=== PATIENT | female | born 1965 | race Hispanic/Latino ===

== ENCOUNTER 2020-04-27 14:36 | Inpatient (IN) | payer MEDICARE, OTHER ==
[~2020-04-27] VITALS: Ht 147.3 cm; Wt 40.8 kg
[2020-04-27 16:27] LABS: BASOPHILS % 0.7 % (0.0-1.0); EOSINOPHILS % 0.4 % (0.0-6.0); HEMATOCRIT 33.3 % (34.2-44.1); HEMOGLOBIN 10.8 g/dL (12.0-16.0); LYMPHOCYTES # (AUTO) 0.3 (1.0-3.2); LYMPHOCYTES % 11.2 % (18.0-39.1); MEAN CORPUSCULAR HEMOGLOBIN 32.2 pg (28-32); MEAN CORPUSCULAR HGB CONC 32.4 g/dL (31-35); MEAN CORPUSCULAR VOLUME 99.4 fL (81-99); MONOCYTES # (AUTO) 0.2 (0.2-0.8); MONOCYTES % 6.8 % (4.4-11.3); NEUTROPHILS # (AUTO) 2.2 (2.1-6.9); NEUTROPHILS % 80.5 % (38.7-80.0); PLATELET COUNT 164 x10e3/uL (140-360); RED BLOOD COUNT 3.35 x10e6/uL (3.6-5.1); RED CELL DISTRIBUTION WIDTH 16.1 % (11.7-14.4)
[2020-04-27 16:38] LABS: CLARITY,URINE CLOUDY (CLEAR); COLOR,URINE YELLOW (YELLOW); KETONES,URINE NEGATIVE (NEGATIVE); LEUKOCYTE ESTERASE ,URINE LARGE (NEGATIVE); NITRITE,URINE NEGATIVE (NEGATIVE); PROTEIN,URINE DIPSTICK >=300 (NEGATIVE); URINE UROBILINOGEN 0.2 mg/dL (0.2 - 1)
[2020-04-27] MEDS ORDERED: OMEPRAZOLE40 MG PO (16:41)
[2020-04-27] MEDS ORDERED: PREDNISONE5 MG PO (16:41)
[2020-04-27] MEDS ORDERED: CEPHALEXIN500 MG (16:41)
[2020-04-27] MEDS ORDERED: INSULIN AS100 UNIT/3 (16:41)
[2020-04-27] MEDS ORDERED: LANTUS 3ML100 UNITS/ SQ (16:41)
[2020-04-27] MEDS ORDERED: NYSTATIN15 GM TOP (16:41)
[2020-04-27] MEDS ORDERED: OMEGA-3 ACID ETH1 GM PO (16:41)
[2020-04-27] MEDS ORDERED: [UNRECOGNIZED DRUG - OTHER] (16:41)
[2020-04-27] MEDS ORDERED: ATORVASTATIN CA10 MG PO (16:41)
[2020-04-27] MEDS ORDERED: CHOLESTYRAMINE P4 GM (16:41)
[2020-04-27] MEDS ORDERED: SEVELAMER CARB800 MG PO (16:41)
[2020-04-27] MEDS ORDERED: NIFEDIPINE ER30 MG (16:41)
[2020-04-27 16:42] LABS: ALBUMIN 2.3 g/dL (3.5-5.0); ALBUMIN/GLOBULIN RATIO 0.7 (0.8-2.0); ANION GAP 12.7 mmol/L (8-16); CALCIUM 7.7 mg/dL (8.4-10.2); CREATININE, SERUM 1.14 mg/dL (0.57-1.11); POTASSIUM 3.7 mmol/L (3.5-5.1)
[2020-04-27 16:45] LABS: WBC,URINE (MAN) >50 /HPF (0-5)
[2020-04-27 16:46] LABS: AMORPHOUS SEDIMENT,URINE FEW (FEW); BACTERIA,URINE MODERATE /HPF; EPITHELIAL CELLS,URINE FEW /LPF; MUCUS,URINE MODERATE (RARE)
[2020-04-27 16:48] LABS: INR 0.88; PROTHROMBIN TIME 12.4 seconds (11.9-14.5)
[2020-04-27 16:49] LABS: CREATINE KINASE MB 2.9 ng/mL (0-5.0); PARTIAL THROMBOPLASTIN TIME 29.2 seconds (23.8-35.5)
[2020-04-27] MEDS ORDERED: MEROPENEM 1GM 100 ML IV STA (17:07)
[2020-04-27] MEDS ORDERED: ONDANSETRON HCL INJ 2MG/ML 2ML 2 MG/ML VIAL IV PRN (18:00)
[2020-04-27] MEDS ORDERED: SODIUM CHLORIDE FLUSH 10 ML SYR INJ PRN (18:00)
[2020-04-27] MEDS ORDERED: DEXTROSE 50% SYRINGE 50 ML IV PRN (18:00)
[2020-04-27 21:01] VITALS: BP 164/76
[2020-04-27 21:23] VITALS: BP_SYST 152; BP_SYST 164; BP_DIAS 76; BP_DIAS 99
[2020-04-27] MEDS: INSULIN REGULAR, HUMAN 100 UNIT/1 ML 3ML VIAL SQ SCH (21:41)
[2020-04-27] MEDS ORDERED: CYCLOSPORINE25 MG PO (21:55)
[2020-04-27] MEDS ORDERED: IMODIUM2 MG PO (22:11)
[2020-04-27] MEDS ORDERED: [UNRECOGNIZED DRUG - OTHER] PO (22:11)
[2020-04-27] MEDS ORDERED: TYLENOL EXTRA500 MG PO (22:11)
[2020-04-27] MEDS ORDERED: VITAMIN D250 MCG PO (22:11)
[2020-04-28] VITALS (7 sets, daily range): BP systolic 97–122; BP diastolic 41–51
[2020-04-28] MEDS: ACETAMINOPHEN 325 MG TAB PO PRN ×2 (01:02→18:21)
[2020-04-28 02:19] LABS: CREATINE KINASE MB 1.4 ng/mL (0-5.0)
[2020-04-28] MEDS ORDERED: ZOLPIDEM TARTRATE 5 MG TAB PO PRN (04:00)
[2020-04-28] MEDS ORDERED: DOCUSATE SODIUM 100 MG CAP PO PRN (04:00)
[2020-04-28] MEDS: SODIUM CHLORIDE 0.9% 1000ML 1,000 ML IV SCH (04:20)
[2020-04-28 06:16] LABS: BASOPHILS % 0.7 % (0.0-1.0); HEMATOCRIT 32.9 % (34.2-44.1); HEMOGLOBIN 10.5 g/dL (12.0-16.0); LYMPHOCYTES # (AUTO) 0.6 (1.0-3.2); LYMPHOCYTES % 21.4 % (18.0-39.1); MEAN CORPUSCULAR HEMOGLOBIN 32.2 pg (28-32); MEAN CORPUSCULAR HGB CONC 31.9 g/dL (31-35); MEAN CORPUSCULAR VOLUME 100.9 fL (81-99); MONOCYTES # (AUTO) 0.4 (0.2-0.8); MONOCYTES % 11.9 % (4.4-11.3); NEUTROPHILS # (AUTO) 1.9 (2.1-6.9); NEUTROPHILS % 65.3 % (38.7-80.0); PLATELET COUNT 122 x10e3/uL (140-360); RED BLOOD COUNT 3.26 x10e6/uL (3.6-5.1); RED CELL DISTRIBUTION WIDTH 16.5 % (11.7-14.4)
[2020-04-28 06:40] LABS: CHOL/HDL RATIO 1.8 (3.0-3.6)
[2020-04-28 06:46] LABS: CREATINE KINASE MB 1.2 ng/mL (0-5.0)
[2020-04-28 07:02] LABS: ALBUMIN 2.1 g/dL (3.5-5.0); ALBUMIN/GLOBULIN RATIO 0.7 (0.8-2.0); ANION GAP 12.7 mmol/L (8-16); CALCIUM 7.6 mg/dL (8.4-10.2); CREATININE, SERUM 1.24 mg/dL (0.57-1.11); POTASSIUM 3.7 mmol/L (3.5-5.1)
[2020-04-28] MEDS: INSULIN REGULAR, HUMAN 100 UNIT/1 ML 3ML VIAL SQ SCH ×4 (07:30→21:30)
[2020-04-28] MEDS: CYCLOSPORINE MODIFIED PO SCH ×2 (09:00→17:00)
[2020-04-28] MEDS: PANTOPRAZOLE SOD 40 MG TABEC PO SCH (11:20)
[2020-04-28] MEDS: SEVELAMER CARBONATE 800 MG TAB PO SCH ×3 (11:20→18:22)
[2020-04-28] MEDS: PREDNISONE 5 MG TAB PO SCH (11:22)
[2020-04-28] MEDS: OMEGA 3 POLYUNSAT FATTY ACIDS 1000 MG SOFTGEL PO SCH ×2 (11:22→18:22)
[2020-04-28] MEDS ORDERED: MEROPENEM 500MG 500 MG in SODIUM CHLORIDE 0.9% 50ML 50 ML IV SCH (18:00)
[2020-04-28] MEDS ORDERED: ATORVASTATIN 10 MG TAB PO SCH (21:00)
[2020-04-28] MEDS ORDERED: INSULIN GLARGINE 100 UNITS/ML VIAL SQ SCH (21:00)
[2020-04-29] VITALS (9 sets, daily range): BP systolic 100–128; BP diastolic 41–68
[2020-04-29] MEDS: SODIUM CHLORIDE 0.9% 1000ML 1,000 ML IV SCH (05:02)
[2020-04-29 06:30] LABS: BASOPHILS % 0.4 % (0.0-1.0); EOSINOPHILS % 0.4 % (0.0-6.0); HEMATOCRIT 30.8 % (34.2-44.1); HEMOGLOBIN 9.6 g/dL (12.0-16.0); LYMPHOCYTES # (AUTO) 0.6 (1.0-3.2); LYMPHOCYTES % 25.1 % (18.0-39.1); MEAN CORPUSCULAR HEMOGLOBIN 32.8 pg (28-32); MEAN CORPUSCULAR HGB CONC 31.2 g/dL (31-35); MEAN CORPUSCULAR VOLUME 105.1 fL (81-99); MONOCYTES # (AUTO) 0.3 (0.2-0.8); MONOCYTES % 11.3 % (4.4-11.3); NEUTROPHILS # (AUTO) 1.5 (2.1-6.9); NEUTROPHILS % 62.4 % (38.7-80.0); PLATELET COUNT 148 x10e3/uL (140-360); RED BLOOD COUNT 2.93 x10e6/uL (3.6-5.1); RED CELL DISTRIBUTION WIDTH 16.9 % (11.7-14.4)
[2020-04-29 06:50] LABS: ANION GAP 7.6 mmol/L (8-16); CREATININE, SERUM 1.33 mg/dL (0.57-1.11); POTASSIUM 3.6 mmol/L (3.5-5.1)
[2020-04-29 06:57] LABS: CALCIUM 6.9 mg/dL (8.4-10.2)
[2020-04-29] MEDS: INSULIN REGULAR, HUMAN 100 UNIT/1 ML 3ML VIAL SQ SCH ×5 (07:30→21:00)
[2020-04-29 08:20] LABS: ANISOCYTOSIS SLIGHT; PLATELET ESTIMATE ADEQUATE; PLATELET MORPHOLOGY COMMENT NORMAL; RBC MORPHOLOGY COMMENT NORMAL
[2020-04-29] MEDS: CYCLOSPORINE MODIFIED PO SCH ×3 (09:00→17:00)
[2020-04-29] MEDS: SEVELAMER CARBONATE 800 MG TAB PO SCH ×3 (09:09→17:16)
[2020-04-29] MEDS: PREDNISONE 5 MG TAB PO SCH (09:09)
[2020-04-29] MEDS: PANTOPRAZOLE SOD 40 MG TABEC PO SCH (09:09)
[2020-04-29] MEDS: OMEGA 3 POLYUNSAT FATTY ACIDS 1000 MG SOFTGEL PO SCH ×2 (09:09→17:16)
[2020-04-29] MEDS: METRONIDAZOLE 500MG/NS 100ML 100 ML IV SCH ×2 (09:09→16:28)
[2020-04-29] MEDS ORDERED: ONDANSETRON HCL 4 MG ORAL DISINTEGRATING TAB PO PRN (13:45)
[2020-04-29] MEDS ORDERED: LOPERAMIDE HCL 2 MG CAP PO ONE (14:00)
[2020-04-29] MEDS ORDERED: FENTANYL CITRATE/PF 100MCG/2 ML INJ ONE (16:30)
[2020-04-29] MEDS ORDERED: LIDOCAINE HCL 2% LOCAL 20 ML VIAL ONE (16:30)
[2020-04-29] MEDS ORDERED: MIDAZOLAM HCL 2 MG/2 ML VIAL ONE (16:30)
[2020-04-29] MEDS ORDERED: IOPAMIDOL 370 MG/ML 200 ML INFUS..BTL INJ ONE (16:31)
[2020-04-29] MEDS ORDERED: HEPARIN SOD/SOD CHLORIDE 0 ML ONE (16:31)
[2020-04-29] MEDS ORDERED: SODIUM CHLORIDE 0.9% 1000ML 0 ML ONE (16:31)
[2020-04-29] MEDS ORDERED: MEROPENEM 500MG/ NS 50ML 50 ML IV SCH (18:00)
[2020-04-29] MEDS: CYCLOSPORINE 25 MG CAP PO SCH (20:49)
[2020-04-30] VITALS (7 sets, daily range): BP systolic 100–141; BP diastolic 45–65
[2020-04-30] MEDS: SODIUM CHLORIDE 0.9% 1000ML 1,000 ML IV SCH (04:32)
[2020-04-30] MEDS: INSULIN REGULAR, HUMAN 100 UNIT/1 ML 3ML VIAL SQ SCH ×2 (07:30→11:01)
[2020-04-30] MEDS ORDERED: CALCIUM GLUCONATE 10% INJ 9.3 MEQ in SODIUM CHLORIDE 0.9% 100 ML 100 ML IV ONE (08:00)
[2020-04-30] MEDS ORDERED: CEFUROXIME250 MG PO (08:44)
[2020-04-30] MEDS: METRONIDAZOLE 500MG/NS 100ML 100 ML IV SCH ×2 (08:48)
[2020-04-30] MEDS: SEVELAMER CARBONATE 800 MG TAB PO SCH ×2 (08:48→13:32)
[2020-04-30] MEDS: OMEGA 3 POLYUNSAT FATTY ACIDS 1000 MG SOFTGEL PO SCH (08:48)
[2020-04-30] MEDS: CYCLOSPORINE 25 MG CAP PO SCH (08:48)
[2020-04-30] MEDS: PREDNISONE 5 MG TAB PO SCH (08:48)
[2020-04-30] MEDS: PANTOPRAZOLE SOD 40 MG TABEC PO SCH (08:49)
[2020-04-30] MEDS ORDERED: BALSAM PERU/CASTOR OIL 60 GM OINT...G. TP SCH (09:00)
[2020-04-30] MEDS ORDERED: SODIUM CHLORIDE 0.9% 1000ML 1,000 ML ONE (13:57)
[2020-04-30 14:51] LABS: HEMOGLOBIN 9.5 g/dL (12.0-16.0); MEAN CORPUSCULAR HEMOGLOBIN 31.6 pg (28-32); MEAN CORPUSCULAR HGB CONC 30.6 g/dL (31-35); PLATELET COUNT 165 x10e3/uL (140-360); RED BLOOD COUNT 3.01 x10e6/uL (3.6-5.1)
[2020-04-30 15:08] LABS: CALCIUM 7.9 mg/dL (8.4-10.2); CREATININE, SERUM 1.62 mg/dL (0.57-1.11)
[2020-04-30 16:03] LABS: BAND NEUTROPHILS % (MANUAL) 1 %; EOSINOPHILS % (MANUAL) 2 % (0-7); LYMPHOCYTES % (MANUAL) 11 % (19-48); METAMYELOCYTES % (MANUAL) 1 % (0-0); MONOCYTES % (MANUAL) 14 % (3.4-9.0); NEUTROPHILS % (MANUAL) 68 % (40-74)
[2020-04-30 16:04] LABS: HYPOCHROMASIA SLIGHT
[2020-04-30 16:05] LABS: PLATELET ESTIMATE ADEQUATE; PLATELET MORPHOLOGY COMMENT FEW GIANT
== END 2020-04-30 21:40 | DRG 871 ==
LOC: ER 15:06 → ERHOLD 17:52 → MED/SURG2 21:01
PROVIDERS: ADMIT Internal Medicine; ATTEND Internal Medicine
DX: A41.9 Sepsis, unspecified organism (principal); N18.6 End stage renal disease; E43 Unspecified severe protein-calorie malnutrition; E87.1 Hypo-osmolality and hyponatremia; N39.0 Urinary tract infection, site not specified; Z68.1 Body mass index [BMI] 19.9 or less, adult; I12.0 Hypertensive chronic kidney disease with stage 5 chronic kidney disease or end stage renal disease; R64 Cachexia; Z94.0 Kidney transplant status; E11.22 Type 2 diabetes mellitus with diabetic chronic kidney disease; L89.152 Pressure ulcer of sacral region, stage 2; Z99.2 Dependence on renal dialysis; R13.10 Dysphagia, unspecified; E11.51 Type 2 diabetes mellitus with diabetic peripheral angiopathy without gangrene; Z79.899 Other long term (current) drug therapy; K21.9 Gastro-esophageal reflux disease without esophagitis; B96.5 Pseudomonas (aeruginosa) (mallei) (pseudomallei) as the cause of diseases classified elsewhere; H54.8 Legal blindness, as defined in USA; Z20.828 Contact with and (suspected) exposure to other viral communicable diseases
CPT/HCPCS: 36415; 71045; 80048; 80053; 80061; 80158; 81001; 82550; 82553; 82575; 82948; 83036; 83735; 84484; 85007; 85025; 85027; 85610; 85730; 86704; 86706; 86707; 87040; 87086; 87186; 87340; 87350; 87493; 93005; 93925; 97139; 99251; 99284; J0610; J1817; J2001; J2185; J2250; J3010; J7030; J7512; J7515; J7799; Q9967; U0002